=== PATIENT | female | born 1995 | race Asian ===

== ENCOUNTER 2023-02-25 20:56 | Emergency (ER) | payer MEDICAID ==
[~2023-02-25] VITALS: Ht 154.9 cm; Wt 53.5 kg
[2023-02-25 21:08] VITALS: BP 128/81; PULSE 74; RESP 14; TEMP 97.8; O2SAT 99
[2023-02-25] MEDS ORDERED: BENZOCAINE 20% 57 GM CAN MC ONE (21:29)
[2023-02-25 22:00] VITALS: BP 128/81; PULSE 74; RESP 14; TEMP 97.8; O2SAT 99
== END 2023-02-25 22:00 | disposition home or self-care (01) ==
LOC: MED 20:56
DX: R09.A2 Foreign body sensation, throat (principal); Z79.899 Other long term (current) drug therapy
CPT/HCPCS: 99283